=== PATIENT | female | born 1995 | race Caucasian/White ===

== ENCOUNTER 2018-10-03 07:36 | Day surgery (SDC) | payer OTHER ==
[~2018-10-03] VITALS: Ht 157.5 cm; Wt 63.0 kg
[2018-10-03] MEDS ORDERED: fentaNYL 0.05 MG/ML VIAL ONE (09:38)
[2018-10-03] MEDS ORDERED: LIDOCAINE 2% 100 MG/5 ML UJET TP ONE (09:38)
[2018-10-03] MEDS ORDERED: fentaNYL 0.05 MG/ML VIAL IVP ONE (12:35)
== END 2018-10-03 12:27 | disposition home or self-care (01) ==
LOC: MOR 07:36 → MMU 07:38 → MOR 12:27
PROVIDERS: ATTEND Internal Medicine Gastroenterology
DX: K51.00 Ulcerative (chronic) pancolitis without complications (principal); K63.5 Polyp of colon
CPT/HCPCS: 45378; 81025; J3010

== ENCOUNTER 2019-01-23 11:05 | Day surgery (SDC) | payer OTHER ==
[~2019-01-23] VITALS: Ht 157.5 cm; Wt 59.9 kg
[2019-01-23] MEDS ORDERED: LIDOCAINE 2% 100 MG/5 ML UJET TP ONE (12:49)
[2019-01-23] MEDS ORDERED: fentaNYL 0.05 MG/ML VIAL ONE (12:50)
[2019-01-23] MEDS ORDERED: fentaNYL 0.05 MG/ML VIAL IVP ONE (13:09)
== END 2019-01-23 13:40 | disposition home or self-care (01) ==
LOC: MDS 11:05 → MMU 11:27 → MDS 13:40
PROVIDERS: ATTEND Internal Medicine Gastroenterology
DX: K51.90 Ulcerative colitis, unspecified, without complications (principal); Z98.890 Other specified postprocedural states
CPT/HCPCS: 45330; J3010